=== PATIENT | male | born 1935 | race Caucasian/White ===

== ENCOUNTER 2016-07-28 09:26 | Inpatient (IN) | payer MEDICARE, OTHER ==
[~2016-07-28] VITALS: Ht 175.3 cm; Wt 76.3 kg
[~2016-07-28 09:26] MED LIST: PANTOPRAZOLE SO40 MG PO
[2016-07-28 10:54] LABS: HEMOGLOBIN 11.4 gm/dl (14.0-17.5); RED BLOOD COUNT 3.91 M/UL (4.20-5.50); WHITE BLOOD COUNT 6.5 K/UL (4.5-11.0)
[2016-07-28 11:22] LABS: BUN/CREATININE RATIO 19 (0-10)
[2016-07-28] MEDS ORDERED: NEURONTIN 300300 MG PO (23:23)
[2016-07-28] MEDS ORDERED: DEPAKOTE500 MG PO (23:23)
[2016-07-28] MEDS ORDERED: PLAVIX 75 MG TA75 MG PO (23:24)
[2016-07-28] MEDS ORDERED: SEROQUEL25 MG PO ×2 (23:24)
[2016-07-28] MEDS ORDERED: ELIQUIS5 MG PO (23:24)
[2016-07-28] MEDS ORDERED: FLOMAX0.4 MG PO (23:25)
[2016-07-28] MEDS ORDERED: DIGOX250 MCG PO (23:25)
[2016-07-28] MEDS ORDERED: INCRUSE ELLI62.5 MCG INH (23:26)
[2016-07-28] MEDS ORDERED: NAMENDA5 MG PO (23:26)
[2016-07-28] MEDS ORDERED: SPIRIVA18 MCG INH (23:30)
[2016-07-29 04:40] LABS: HEMOGLOBIN 11.1 gm/dl (14.0-17.5); RED BLOOD COUNT 3.76 M/UL (4.20-5.50); WHITE BLOOD COUNT 5.7 K/UL (4.5-11.0)
[2016-07-29 05:20] LABS: BUN/CREATININE RATIO 23 (0-10)
[2016-07-30 05:55] LABS: HEMOGLOBIN 11.1 gm/dl (14.0-17.5); RED BLOOD COUNT 3.85 M/UL (4.20-5.50); WHITE BLOOD COUNT 5.8 K/UL (4.5-11.0)
[2016-07-30 06:16] LABS: BUN/CREATININE RATIO 28 (0-10)
[2016-08-02 07:16] LABS: HEMOGLOBIN 10.6 gm/dl (14.0-17.5); RED BLOOD COUNT 3.57 M/UL (4.20-5.50); WHITE BLOOD COUNT 9.8 K/UL (4.5-11.0)
[2016-08-03 06:42] LABS: HEMOGLOBIN 10.3 gm/dl (14.0-17.5); RED BLOOD COUNT 3.5 M/UL (4.20-5.50); WHITE BLOOD COUNT 9.4 K/UL (4.5-11.0)
[2016-08-03 06:55] LABS: BUN/CREATININE RATIO 26 (0-10)
[2016-08-04 06:03] LABS: HEMOGLOBIN 9.6 gm/dl (14.0-17.5); RED BLOOD COUNT 3.29 M/UL (4.20-5.50); WHITE BLOOD COUNT 8.2 K/UL (4.5-11.0)
[2016-08-04 06:18] LABS: BUN/CREATININE RATIO 31 (0-10)
[2016-08-05] MEDS ORDERED: IPRAT-ALBUT 0.5-3 ML INH (13:41)
[2016-08-05] MEDS ORDERED: BUMEX 1MG TABLET1 MG PO (13:42)
[2016-08-05] MEDS ORDERED: TOPROL XL 25 MG25 MG PO (13:50)
[2016-08-05] MEDS ORDERED: LEVOTHYROXINE25 MCG PO (13:50)
[2016-08-05] MEDS ORDERED: ASPIR 8181 MG PO (13:50)
[2016-08-05] MEDS ORDERED: LASIX 40 MG TAB40 MG PO (13:51)
[2016-08-05] MEDS ORDERED: LIPITOR TAB 2020 MG PO (13:51)
[2016-08-05] MEDS ORDERED: NEURONTIN 400400 MG PO (13:51)
[2016-08-05] MEDS ORDERED: DIGOX250 MCG PO (13:51)
[2016-08-05] MEDS ORDERED: KLONOPIN TAB 00.5 MG PO (13:51)
[2016-08-05] MEDS ORDERED: CYMBALTA 30 MG30 MG PO (13:52)
[2016-08-05] MEDS ORDERED: FLOMAX 0.4 MG0.4 MG PO (13:52)
[2016-08-05] MEDS ORDERED: SEROQUEL25 MG PO (13:52)
[2016-08-05] MEDS ORDERED: MEDROL DOSEPAK 24 MG PO (13:52)
[2016-08-05] MEDS ORDERED: "DEPAKOTE \\\"ER\\\"500 MG" PO (13:52)
[2016-08-05] MEDS ORDERED: PRINIVIL5 MG PO (13:52)
[2016-08-05] MEDS ORDERED: SYMBICORT 80-10.2 GM INH (13:53)
[2016-08-05] MEDS ORDERED: SPIRIVA18 MCG INH (13:53)
[2016-08-05] MEDS ORDERED: PROAIR HFA8.5 GM INH (13:53)
[2016-08-05] MEDS ORDERED: SYNTHROID 25 M25 MCG PO (14:08)
[2016-08-05] MEDS ORDERED: SYMBICORT 160-1 INHA INH (14:11)
[2016-10-28] MEDS ORDERED: BREO ELLIPTA 11 EACH INH (12:42)
[2016-10-28] MEDS ORDERED: COLACE 100MG C100 MG PO (12:42)
[2016-10-28] MEDS ORDERED: LOPRESSOR 25 MG25 MG PO (23:26)
[2016-10-30] MEDS ORDERED: AZITHROMYCIN500 MG PO (11:51)
[2016-10-30] MEDS ORDERED: MEDROL DOSEPAK 24 MG PO (11:51)
[2016-12-31] MEDS ORDERED: NEURONTIN 400400 MG PO (07:13)
== END 2016-08-05 15:18 | disposition home health service (06) | DRG 291 ==
LOC: ER1 09:26 → ZEROF 15:51 → M/S 15:51
PROVIDERS: Internal Medicine; Specialist/Technologist Athletic Trainer; ADMIT Internal Medicine
DX: I13.0 Hypertensive heart and chronic kidney disease with heart failure and stage 1 through stage 4 chronic kidney disease, or unspecified chronic kidney disease (principal); I50.33 Acute on chronic diastolic (congestive) heart failure; J96.22 Acute and chronic respiratory failure with hypercapnia; J96.21 Acute and chronic respiratory failure with hypoxia; N17.9 Acute kidney failure, unspecified; J44.0 Chronic obstructive pulmonary disease with (acute) lower respiratory infection; E87.3 Alkalosis; N18.9 Chronic kidney disease, unspecified; J20.9 Acute bronchitis, unspecified; I25.10 Atherosclerotic heart disease of native coronary artery without angina pectoris; I25.5 Ischemic cardiomyopathy; I35.0 Nonrheumatic aortic (valve) stenosis; I70.1 Atherosclerosis of renal artery; I48.91 Unspecified atrial fibrillation; I44.0 Atrioventricular block, first degree; E03.9 Hypothyroidism, unspecified; E78.5 Hyperlipidemia, unspecified; E87.6 Hypokalemia; D69.6 Thrombocytopenia, unspecified; I70.202 Unspecified atherosclerosis of native arteries of extremities, left leg; D64.9 Anemia, unspecified; R07.9 Chest pain, unspecified; F03.90 Unspecified dementia, unspecified severity, without behavioral disturbance, psychotic disturbance, mood disturbance, and anxiety; N40.0 Benign prostatic hyperplasia without lower urinary tract symptoms; K59.00 Constipation, unspecified; R13.10 Dysphagia, unspecified; M19.90 Unspecified osteoarthritis, unspecified site; R63.0 Anorexia; Z86.711 Personal history of pulmonary embolism; Z95.1 Presence of aortocoronary bypass graft; Z95.5 Presence of coronary angioplasty implant and graft; Z95.820 Peripheral vascular angioplasty status with implants and grafts; Z86.73 Personal history of transient ischemic attack (TIA), and cerebral infarction without residual deficits; Z87.891 Personal history of nicotine dependence; Z87.01 Personal history of pneumonia (recurrent); Z86.14 Personal history of Methicillin resistant Staphylococcus aureus infection; Z72.3 Lack of physical exercise; Z68.25 Body mass index [BMI] 25.0-25.9, adult; Z79.01 Long term (current) use of anticoagulants; Z79.02 Long term (current) use of antithrombotics/antiplatelets; Z79.899 Other long term (current) drug therapy; Z88.3 Allergy status to other anti-infective agents; Z88.1 Allergy status to other antibiotic agents; Z88.0 Allergy status to penicillin; Z88.2 Allergy status to sulfonamides; Z90.49 Acquired absence of other specified parts of digestive tract; Z98.890 Other specified postprocedural states; Z82.49 Family history of ischemic heart disease and other diseases of the circulatory system
CPT/HCPCS: ECHO; 36415; 36600; 71010; 74000; 80048; 80053; 80162; 80299; 82550; 82553; 82607; 82746; 82803; 83036; 83735; 83874; 83880; 84439; 84443; 84484; 85025; 85027; 85610; 85730; 92526; 92610; 93005; 93306; 94640; 94664; 96374; 97110; 97116; 99285; J1940; J2920; J7030; J7050